=== PATIENT | female | born 1955 | race Caucasian/White ===

== ENCOUNTER 2021-04-24 14:53 | Emergency (ER) | payer OTHER, MEDICARE ==
[~2021-04-24] VITALS: Ht 167.6 cm; Wt 68.0 kg
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
[2021-04-24] MEDS ORDERED: DIPH,PERTUSS(ACELL),TET VAC/PF 0.5 ML SYRINGE. VAX IM ONE (15:15)
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
[2021-04-24] MEDS ORDERED: HYDR-2761 PO (15:52)
[2021-04-24 15:55] VITALS: BP 152/82
== END 2021-04-24 16:14 | disposition home or self-care (01) ==
LOC: ER 14:53
DX: S60.512A Abrasion of left hand, initial encounter (principal); R07.89 Other chest pain; V49.49XA Driver injured in collision with other motor vehicles in traffic accident, initial encounter; Y93.89 Activity, other specified; Y92.488 Other paved roadways as the place of occurrence of the external cause; Y99.8 Other external cause status
CPT/HCPCS: 71045; 90471; 90715; 99283-25